=== PATIENT | male | born 1950 | race Caucasian/White ===

== ENCOUNTER 2016-06-21 04:10 | Day surgery (SDC) | payer BC ==
--- NOTE | ~2016-06-21 | OP ---
Record Of Operation [facility] [address] [place]. [address] NAME: OMKAR SUAREZ : 50 STATUS : REG [facility] PAT#: [id number] AGE: 65 ADM/REG DATE : 06/21/16 MR#: [id number] REPORT SERV DATE: 06/21/16 DICTATED BY: NATALIA ADHIKARI II DATE: 06/21/16 REPORT STATUS : Draft TRANSCRIBED BY: MODL DATE: 06/21/16 DATE OF PROCEDURE: 06/21/2016 PREOPERATIVE DIAGNOSES: 1. Lumbar spinal stenosis, L4-L5. 2. Right lower extremity radiculopathy. POSTOPERATIVE DIAGNOSES: 1. Lumbar spinal stenosis, L4-L5. 2. Right lower extremity radiculopathy. PROCEDURE: 1. Lumbar laminectomy, L4-L5. 2. Use of the microscope and stereotactic spinal imaging. SURGEON: Dr. Natalia Adhikari. FLUIDS: 1100 mL LR. ESTIMATED BLOOD LOSS: 15 mL. DRAINS: None. COMPLICATIONS: None. ANTIBIOTIC: Preoperatively. PREOPERATIVE HISTORY: This is a friendly 65-year-old gentleman, who came to see me for not only his low back pain, but also his radiculopathy. He does receive treatment for his lumbar discogenic and facet pain through [employer] from an old worker's compensation injury. Mr. Suarez was very forthright and felt that his radiculopathy was not related to the work injury, which I agreed with. We discussed the risks and benefits of the laminectomy for his leg pain. He was aware that this would not improve his back pain, but should decrease his radiculopathy. DESCRIPTION OF PROCEDURE: After informed consent was obtained, the patient was brought to the operating room at his request and general anesthesia achieved. He was placed in the prone position and the back was prepped and draped in a sterile fashion. The stereotactic spinal pin was placed into the left iliac crest and the intraoperative CT scan completed. The stereotactic guidance was then used throughout the case. At this point, the minimally invasive incision was performed on the right at L4-5. The minimally invasive quadrant retractor was placed. The microscope was brought into place and under microscopic visualization, the L4-5 area was fully dissected. The spinolaminar junction was now taken down with the high-speed bur and the Kerrison rongeurs and the curettes. The dura was then well decompressed following removal of the ligamentum flavum Record Of Operation [place] [id number] [facility] [address] NAME: OMKAR SUAREZ : 50 STATUS : REG [facility] PAT#: [id number] AGE: 65 ADM/REG DATE : 06/21/16 MR#: [id number] REPORT SERV DATE: 06/21/16 DICTATED BY: NATALIA ADHIKARI II DATE: 06/21/16 REPORT STATUS : Draft TRANSCRIBED BY: MODL DATE: 06/21/16 and portions of the facet. The L5 nerve root was identified as having significant compression upon it. Additional facet was removed and the L5 nerve root well decompressed. The L4 nerve root did not show significant compression. The area was now irrigated and hemostasis achieved. Standard closure was performed and the patient extubated and transferred to PACU in stable condition. RADHA/WILLIAM Natalia Adhikari II, M.D. / [id number] CC: Berenice Marsh II, M.D.
[~2016-06-21 04:10] MED LIST: ASAB PO; ASTELIN NAS; ENDOCET1 TA3 PO; FLOMAX4 PO; GLUCOPHAGE1000 MG PO; GLUCOTRO10 PO; GLUCXL10 PO; IMDUR30; IMDUR30 PO; JANUVIA100 MG PO; K-TABS10 MEQ PO; KDUR20 PO; L20 PO; LEVEMFLXPN SC; LOP25; LOP25 PO; METHOC750B PO; NEUR300 PO; PERCOCET1 TA4 PO; PREV30 PO; PRIN20 PO; PROTONIX PO; ZANAFLEX 4 MG TA4 MG PO; ZOCOR40 PO
== END 2016-06-21 23:59 | disposition home or self-care (01) ==
LOC: SDC 04:10
DX: M48.06 Spinal stenosis, lumbar region (principal); I10 Essential (primary) hypertension; E66.9 Obesity, unspecified; E11.9 Type 2 diabetes mellitus without complications; E78.00 Pure hypercholesterolemia, unspecified; G62.9 Polyneuropathy, unspecified; M19.90 Unspecified osteoarthritis, unspecified site; K21.9 Gastro-esophageal reflux disease without esophagitis; Z88.0 Allergy status to penicillin; Z68.33 Body mass index [BMI] 33.0-33.9, adult; Z90.49 Acquired absence of other specified parts of digestive tract; Z98.890 Other specified postprocedural states
CPT/HCPCS: 80048; 82962; 85014; 85018; 88304; 88311; 93005; 94640; A9270-GY; J0690; J1030; J1170; J2250; J2270; J2405; J2710; J3010